=== PATIENT | male | born 1995 | race American Indian/Alaskan Native ===

== ENCOUNTER 2017-03-10 00:27 | Emergency (ER) | payer OTHER ==
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
[2017-03-10 04:05] VITALS: BP 115/76
--- NOTE | 2017-03-10 07:36 | XRay Report ---
RIGHT TIBIA AND FIBULA, ONE VIEW History: Right leg pain. Findings: Single view of the right tibia and fibula demonstrate no osseous or soft tissue abnormality. Impression: Unremarkable exam.
--- NOTE | 2017-03-10 07:37 | XRay Report ---
CERVICAL SPINE, 3 views: History: Neck pain. Findings: The vertebral bodies, disk spaces, posterior elements and prevertebral soft tissues are unremarkable. The dens is intact. No acute fracture or malalignment is identified. Impression: 1. No evidence for acute injury to the cervical spine.
--- NOTE | 2017-03-10 07:37 | XRay Report ---
AP CHEST: HISTORY: chest pain AP view of the chest demonstrates a normal mediastinal and cardiac contour with clear lungs and normal bony and soft tissue structures. The lateral right rib cage is cut off the field of view but no abnormality is suspected in this area. IMPRESSION: Unremarkable AP chest.
== END 2017-03-10 04:05 | disposition home or self-care (01) ==
LOC: ED 00:27
DX: S86.811A Strain of other muscle(s) and tendon(s) at lower leg level, right leg, initial encounter (principal); S29.011A Strain of muscle and tendon of front wall of thorax, initial encounter; F17.200 Nicotine dependence, unspecified, uncomplicated; V49.9XXA Car occupant (driver) (passenger) injured in unspecified traffic accident, initial encounter; Y92.488 Other paved roadways as the place of occurrence of the external cause; Y93.89 Activity, other specified; Y99.8 Other external cause status
CPT/HCPCS: 71010; 72040

== ENCOUNTER 2018-08-04 19:52 | Emergency (ER) | payer OTHER | END 2018-08-04 23:05 | disposition left against medical advice (07) | LOC: ED 19:52 ==